=== PATIENT | female | born 1995 | race Caucasian/White ===

== ENCOUNTER 2017-07-29 23:24 | Emergency (ER) | payer OTHER ==
[~2017-07-29] VITALS: Ht 160 cm; Wt 57.0 kg
[2017-07-30] MEDS ORDERED: TETanus/Pertussis (Acell)/Diphther VAC/PF (Tdap-Adult) 0.5ml syringe IMVAC ONE (02:05)
[2017-07-30] MEDS ORDERED: BUPIVAcaine/PF 2.5 mg/ml (0.25%) 30ml vial IJ ONE (02:05)
[2017-07-30] MEDS ORDERED: LIDOcaine 1%/PF (10mg/ml) 5ml vial IJ ONE (02:15)
[2017-07-30] MEDS ORDERED: benoxinate/fluorescein ophth drops 5ml bottle LEFTEYE ONE (03:00)
[2017-07-30] MEDS ORDERED: PROPARACAINE/FLUORESCEIN ophthalmic drops 5ml bottle LEFTEYE ONE (03:15)
[2017-07-30 03:41] VITALS: BP 123/67
[2017-07-30] MEDS ORDERED: SUL50S LEFTEYE (03:47)
== END 2017-07-30 04:42 | disposition home or self-care (01) ==
LOC: ER 23:25
DX: T15.12XA Foreign body in conjunctival sac, left eye, initial encounter (principal); W22.8XXA Striking against or struck by other objects, initial encounter; Y93.89 Activity, other specified; Y92.89 Other specified places as the place of occurrence of the external cause; Y99.8 Other external cause status
CPT/HCPCS: 90471; 90715; 99284; J2001